=== PATIENT | female | born 1980 | race Caucasian/White ===

== ENCOUNTER → 2019-07-18 09:43 | Outpatient (CLI) | payer OTHER, SELFPAY ==
[2019-07-18 11:50] LABS: Influenza A - CEPHEID Flu A NEGATIVE (NEGATIVE); Influenza B - CEPHEID Flu B NEGATIVE (NEGATIVE)
== END ==
PROVIDERS: Visit Provider Physician Assistant
DX: R05 Cough (principal); R50.9 Fever, unspecified
CPT/HCPCS: 87502

== ENCOUNTER 2021-06-06 08:48 | Emergency (ER) | payer OTHER, SELFPAY ==
[2021-06-06] VITALS (17 sets, daily range): BP systolic 106–147; BP diastolic 55–74; PULSE 70–105; RESP 15–27; TEMP 36.6; O2SAT 96–100; BMI 33.4
--- NOTE | 2021-06-06 09:02 | DI.US.S_ITS ---
PROCEDURE: US ABDOMEN LIMITED INDICATIONS: RUQ PAIN TECHNIQUE: Real-time scanning was performed of the abdominal and retroperitoneal organs, with image documentation. COMPARISON: None. FINDINGS: Liver: Homogeneous echotexture. No evidence of focal mass lesion. No intra hepatic biliary ductal dilatation Gallbladder: Sonolucent without cholelithiasis. No gallbladder wall thickening. No pericholecystic fluid or Byrd's sign. Common Bile Duct: 5 mm. Pancreas: Associated with the pancreatic body and tail, there is a large solid nonvascular mass lesion measuring 8.9 x 9.8 x 9.1 cm. Heterogenous internal echoes noted. IMPRESSION: 1. Large solid mass lesion associated with the pancreas. Recommend follow-up contrast CT abdomen and pelvis Approved by: Kurt Hurtado M.D. on 06/06/2021 at 9:10
--- NOTE | 2021-06-06 09:02 | DI.RAD.S_ITS ---
PROCEDURE: XR CHEST 1V INDICATIONS: short of breath TECHNIQUE: One view of the chest was acquired. COMPARISON: None. FINDINGS: Surgical changes and devices: None. Lungs and pleura: Lungs are clear. No pleural effusions or pneumothorax. Mediastinum: Mediastinal contours appear normal. Heart size is normal. Bones and chest wall: No suspicious bony lesions. Overlying soft tissues appear unremarkable. IMPRESSION: No acute cardiopulmonary findings Approved by: Kurt Hurtado M.D. on 06/06/2021 at 8:49
--- NOTE | 2021-06-06 09:03 | ED_ITS ---
HPI - Abdominal Pain General Chief Complaint: Abdominal Pain Stated Complaint: upper abd pain Time Seen by Provider: 06/06/21 08:53 History of Present Illness HPI narrative: Patient is a 41-year-old female with history of lupus controlled on hydroxychloroquine presenting today with sudden onset of upper abdominal pain bilateral shoulder pain and neck pain along with some chest pain. She said she felt fine yesterday. She is trying to sleep in this morning but unable to do so. She has significant epigastric pain. She says some of her neck and shoulder pain feels like lupus although she has not had a lupus flare in a number of years. She denies any fever or chills. Related Data Home Medications Medication Instructions Recorded Confirmed duloxetine 60 mg capsule,delayed 60 mg PO DAILY 07/18/19 07/18/19 release fluoxetine 20 mg capsule 20 mg PO DAILY 07/18/19 07/18/19 hydroxychloroquine 200 mg tablet 200 mg PO DAILY 07/18/19 07/18/19 Previous Rx's Medication Instructions Recorded ondansetron 4 mg disintegrating 4 mg PO Q8H PRN #10 tab 06/06/21 tablet oxycodone-acetaminophen 5 mg-325 1 tab PO Q6H PRN #20 tab 06/06/21 mg tablet (Percocet) Allergies Allergy/AdvReac Type Severity Reaction Status Date / Time Penicillins AdvReac Verified 06/06/21 09:04 Review of Systems Review of Systems Narrative: GENERAL: Denies chills, fatigue, malaise, fever, sweats, travel HEENT: Denies sinus pain, ear pain, sore throat, difficulty swallowing, neck pain RESPIRATORY: Denies dyspnea, cough, wheezing, hemoptysis, sputum. CARDIOVASCULAR: See HPI GASTROINTESTINAL: See HPI : Denies dysuria, frequency, incontinence, hematuria, urinary retention, flank pain. MUSCULOSKELETAL: Denies weakness, joint pain, or bony pain SKIN: No rash, no erythema, no pruritus NEUROLOGIC: Denies weakness, dizziness, headache, numbness, change in speech, confusion PSYCHIATRIC: No concerning psychosocial issues. 12 point review of systems is negative except for those stated above and HPI Patient History Social History Smoking Status: Never smoker Smoking Status: Never smoker Exam Initial Vital Signs Initial Vital Signs: Vital Signs Pulse Rate 72 06/06/21 08:54 Pulse Oximetry 100 06/06/21 08:54 GENERAL: Alert 41-year-old feels uncomfortable HEENT: Head atraumatic,EOMI, pupils reactive, face symmetric, moist mucous membranes CARDIOVASCULAR: Regular rate and rhythm without murmurs, rubs or gallops. RESPIRATORY: Breath sounds equal bilaterally, no wheezes rales or rhonchi. ABDOMEN: Soft, tender in epigastric region mild tenderness in upper quadrant negative Byrd sign minimal lower abdominal pain EXTREMITIES: Normal range of motion, no clubbing or edema. Neurovascularly intact NEUROLOGICAL: Alert and oriented x4.Normal gait and speech. SKIN: Warm, dry, no laceration, no petechiae, no rashes or lesions. Course Orders Ordered: ED Orders 06/06/21 10:05 CT abdomen pelvis w con Stat 06/06/21 11:55 COVID19 -Nasal swab/Pre-Proc Stat Discontinued Medications Ketorolac Tromethamine (Ketorolac 30 Mg/Ml Vial) 30 mg IV NOW ONE Stop: 06/06/21 09:03 Last Admin: 06/06/21 09:13 Dose: 30 mg Documented by: FRANCESCO Morphine Sulfate (Morphine 2 Mg/Ml Inj) 2 mg IV NOW ONE Stop: 06/06/21 10:42 Last Admin: 06/06/21 10:47 Dose: 2 mg Documented by: XIANG Morphine Sulfate (Morphine 2 Mg/Ml Inj) 2 mg IV NOW ONE Stop: 06/06/21 12:33 Last Admin: 06/06/21 13:20 Dose: 2 mg Documented by: PATITO Ondansetron HCl (Ondansetron 4 Mg/2 Ml Inj) 4 mg IV NOW ONE Stop: 06/06/21 12:33 Last Admin: 06/06/21 13:20 Dose: 4 mg Documented by: PATITO Vital Signs Vital signs: Vital Signs - 8 hr 06/06/21 10:30 06/06/21 11:00 06/06/21 11:30 Pulse Rate 85 79 80 Respiratory Rate 20 18 22 Blood Pressure 125/68 Pulse Oximetry 98 97 06/06/21 11:56 06/06/21 12:00 06/06/21 12:30 Pulse Rate 84 75 71 Respiratory Rate 19 22 20 Blood Pressure 128/64 Pulse Oximetry 99 98 98 06/06/21 13:00 06/06/21 13:21 06/06/21 13:30 Pulse Rate 72 73 70 Respiratory Rate 27 H 21 15 Blood Pressure 109/56 L 106/55 L Pulse Oximetry 96 96 96 06/06/21 14:00 06/06/21 14:30 Pulse Rate 78 80 Respiratory Rate 20 21 Blood Pressure 114/69 114/60 Pulse Oximetry 99 98 MDM - Abdominal Pain Lab Data Result diagrams: 06/06/21 08:55 06/06/21 08:55 Labs: Lab Results 06/06/21 06/06/21 06/06/21 Range/Units 08:50 08:55 08:55 WBC 7.9 (4.5-11.0) X10^3/uL RBC 4.84 (4.0-5.2) X10^6/uL Hgb 12.6 (12.0-16.0) g/dL Hct 39.1 (36-46) % MCV 80.8 (80-100) fL MCH 26.0 (26-34) PG MCHC 32.1 (30-36) % RDW 15.2 H (11.6-14.8) % Plt Count 297 (150-400) X10^3/uL Neut % (Auto) 76.5 H (50-75) % Lymph % (Auto) 17.8 L (25-40) % [place] % (Auto) 3.7 (3-14) % Eos % (Auto) 1.2 L (2-4) % Baso % (Auto) 0.8 (0-2) % Neut # (Auto) 6000 (8690-8376) /uL Lymph # (Auto) 1400 (6732-0941) /uL [place] # (Auto) 300 (0-900) /uL Eos # (Auto) 100 (0-450) /uL Baso # (Auto) 100 (0-100) /uL PT 12.1 (10.1-12.7) SECONDS INR 1.1 (0.9-1.3) APTT 37 H (26.4-36.2) SECONDS Sodium 136 L (137-145) mmol/L Potassium 3.8 (3.4-5.1) mmol/L Chloride 106 (98-107) mmol/L Carbon Dioxide 25 (22-32) mmol/L BUN 16 (7-17) mg/dL Creatinine 0.72 (0.52-1.04) mg/dL Estimated GFR > 60.0 (>60) mL/min BUN/Creatinine Ratio 22.2 H (6-22) Glucose 100 (70-100) mg/dL Calcium 8.7 (8.4-10.2) mg/dL Total Bilirubin 0.6 (0.2-1.3) mg/dL AST 21 (14-36) IU/L ALT 17 (<35) IU/L Alkaline Phosphatase 65 (38-126) U/L Total Creatine Kinase (30-135) U/L CK-MB (CK-2) CK-MB (CK-2) Rel Index Troponin I (0.01-0.034) ng/mL Total Protein 6.9 (6.3-8.2) g/dL Albumin 4.0 (3.5-5.0) g/dL Globulin 2.9 (1.7-4.1) g/dL Albumin/Globulin Ratio 1.4 (1.0-2.8) Lipase 43 (23-300) U/L SARS-CoV-2 (PCR) (Negative) 06/06/21 06/06/21 Range/Units 08:55 11:55 WBC (4.5-11.0) X10^3/uL RBC (4.0-5.2) X10^6/uL Hgb (12.0-16.0) g/dL Hct (36-46) % MCV (80-100) fL MCH (26-34) PG MCHC (30-36) % RDW (11.6-14.8) % Plt Count (150-400) X10^3/uL Neut % (Auto) (50-75) % Lymph % (Auto) (25-40) % [place] % (Auto) (3-14) % Eos % (Auto) (2-4) % Baso % (Auto) (0-2) % Neut # (Auto) (9711-3379) /uL Lymph # (Auto) (7331-8568) /uL [place] # (Auto) (0-900) /uL Eos # (Auto) (0-450) /uL Baso # (Auto) (0-100) /uL PT (10.1-12.7) SECONDS INR (0.9-1.3) APTT (26.4-36.2) SECONDS Sodium (137-145) mmol/L Potassium (3.4-5.1) mmol/L Chloride (98-107) mmol/L Carbon Dioxide (22-32) mmol/L BUN (7-17) mg/dL Creatinine (0.52-1.04) mg/dL Estimated GFR (>60) mL/min BUN/Creatinine Ratio (6-22) Glucose (70-100) mg/dL Calcium (8.4-10.2) mg/dL Total Bilirubin (0.2-1.3) mg/dL AST (14-36) IU/L ALT (<35) IU/L Alkaline Phosphatase (38-126) U/L Total Creatine Kinase 96 (30-135) U/L CK-MB (CK-2) TNP CK-MB (CK-2) Rel Index TNP Troponin I < 0.012 (0.01-0.034) ng/mL Total Protein (6.3-8.2) g/dL Albumin (3.5-5.0) g/dL Globulin (1.7-4.1) g/dL Albumin/Globulin Ratio (1.0-2.8) Lipase (23-300) U/L SARS-CoV-2 (PCR) Negative (Negative) Point of care testing: Point of Care Testing Test Results Negative Urine Dip Bedside Urine Glucose Negative Bedside Urine Bilirubin - Negative Bedside Urine Ketone - Negative Urine Specific [place] 1.010 Bedside Urine Occult Blood +++ Bedside Urine pH 8 Bedside Urine Protein - Negative Bedside Urine Urobilinogen - Negative Bedside Urine Nitrite - Negative Bedside Urine Leukocytes - Negative Esterase Imaging Data US - abdomen: Radiologist's Impression: PROCEDURE:? US ABDOMEN LIMITED ? INDICATIONS:? RUQ PAIN ? TECHNIQUE:? Real-time scanning was performed of the abdominal and retroperitoneal organs, with image documentation.? ? COMPARISON:? None. ? FINDINGS: ? Liver:? Homogeneous echotexture.? No evidence of focal mass lesion.? No intra hepatic biliary ductal dilatation ? Gallbladder:? Sonolucent without cholelithiasis.? No gallbladder wall thickening. No pericholecystic fluid or Byrd's sign. ? Common Bile Duct:? 5 mm. ? Pancreas:? Associated with the pancreatic body and tail, there is a large solid nonvascular mass lesion measuring 8.9 x 9.8 x 9.1 cm.? Heterogenous internal echoes noted. ? IMPRESSION: ? 1. Large solid mass lesion associated with the pancreas.? Recommend follow-up contrast CT abdomen and pelvis? Approved by: Kurt Hurtado M.D. on 06/06/2021 at 9:10? CT scan - abdomen/pelvis: Radiologist's Impression: PROCEDURE:? CT ABDOMEN PELVIS W CON ? INDICATIONS:? Abdominal pain ? TECHNIQUE:? After the administration of intravenous contrast, axial sections acquired from the lung bases to the pubic symphysis.? Coronal and sagittal reformats were performed.? For radiation dose reduction, the following was used:? automated exposure control, adjustment of mA and/or kV according to patient size.? ? COMPARISON:? None. ? FINDINGS: ? Lower thorax: The lung bases are clear.? Heart size normal.? No hiatal hernia. ? Liver:? Normal in size and attenuation. No contour deformity present.? Perihepatic free fluid noted. ? Biliary system:? No calcified cholelithiasis or pericholecystic inflammation. No intra or extrahepatic bile duct dilatation. ? Pancreas:? There is a large mass lesion replacing the body and tail of the pancreas measuring 8.5 x 10.4 cm axial by 9.4 cm craniocaudal.? There are both solid and cystic internal components, there is a solid capsule measuring up to 4 mm in thickness.? Mass appears to compress the splenic vein without definitive evidence of local invasion. ? Spleen:? Spleen is enlarged at 13 cm.? No intrinsic mass lesion in.? Perisplenic free fluid noted.? Multiple venous varices noted in the splenic hilum ? Adrenals:? Normal morphology and density. ? Reproductive system:? Unremarkable as visualized.? Vaginal tampon noted ? Urinary system:? Normal renal size and attenuation. No renal calculi, hydronephrosis, or solid mass present.? Urinary bladder unremarkable. ? Gastrointestinal system:? The bowel is unremarkable without evidence of bowel obstruction or inflammation. The stomach appears unremarkable. ? Appendix:? No findings to suggest acute appendicitis. ? Peritoneal spaces:? No mesenteric or retroperitoneal adenopathy.? No free air.? Moderate free fluid noted in the upper quadrants as well as in the pelvis.? ? Vasculature:? Multiple varices noted in the splenic hilum as well as within the mesentery.? Aorta and IVC unremarkable. ? Abdominal wall:? Abdominal wall intact without evidence of ventral or inguinal hernias. ? Musculoskeletal:? Normal bone mineralization.? No acute fractures.? ? IMPRESSION: ? 1. Large solid and cystic mass lesion replaces the body and tail the pancreas.? Given the appearance, primary differential is neoplastic.? Less likely consideration would be pseudocyst.? The mass compresses the splenic vein, and there are multiple perisplenic and mesenteric varices present.? ? 2. Moderate abdominal and pelvic ascites.? ? 3. Splenomegaly, 13 cm without focal mass lesion ? ? Approved by: Kurt Hurtado M.D. on 06/06/2021 at 10:35? Chest x-ray: Radiologist's Impression: PROCEDURE:? XR CHEST 1V ? INDICATIONS:? short of breath ? TECHNIQUE:? One view of the chest was acquired.? ? COMPARISON:? None. ? FINDINGS:? ? Surgical changes and devices:? None.? ? Lungs and pleura:? Lungs are clear.? No pleural effusions or pneumothorax.? ? Mediastinum:? Mediastinal contours appear normal.? Heart size is normal.? ? Bones and chest wall:? No suspicious bony lesions.? Overlying soft tissues appear unremarkable.? ? IMPRESSION:? No acute cardiopulmonary findings ? ? ? Approved by: Kurt Hurtado M.D. on 06/06/2021 at 8:49? ECG Data Interpretation: Normal sinus rhythm rate 71 RI interval 152 QRS [address] changes or T- wave inversions MDM Narrative Medical decision making narrative: Initially patient's pain is controlled with Toradol. Unfortunately a pancreatic masses seen on ultrasound and confirmed by CP. Blood work is overall is reassuring. 1310 Dr Ann, surgery at [facility] has reviewed CT and updated patient's symptoms. At this time recommends outpatient follow-up specifically with [facility]. Recommends referral P placed. 1430-Dr Reed, on-call for [facility], patient's PCP has been updated on patient's results in need for urgent referral. She will place the referral. Patient did require morphine to help with pain. she will be sent home with pain and nausea medication. Patient and her have been updated on results concern for cancer and needed to go to [place]. Discharge Plan Departure Patient Disposition: Home Clinical Impression: Mass of pancreas Instructions: Pancreatic Cancer Activity Restrictions/Additional Instructions: *You have been diagnosed with pancreatic mass *What to do: At this time and appears to have a mass on her pancreas. It is concerning for cancer. I am working on a referral for you to the [facility]. I spoke with a surgeon Indigo Ann. I am also making your primary care provider aware of the situation as well *Continue to take medications as directed Percocet 1 tablet every 6 hours if needed for severe pain Zofran 4 mg every 8 hours if needed for nausea or vomiting *Follow up with your primary care provider in 2-3 days or call [phone] [facility] *Return to ER if you should have persistent vomiting, increasing pain, or any new, worsening or concerning symptoms CONTROLLED SUBSTANCE DISCHARGE (Narcotoic/benzodiazepine/Flexeril/Phenergan) 1. You have been prescribed narcotic medications, it does have acetaminophen/Tylenol/paracetamol in it, DO NOT TAKE MORE THAN 4,00mg in 24 hours of Tylenol. TRAMADOL DOES NOT CONTAIN TYLENOL 2. Please understand that we cannot provide further refills of narcotics, benzodiazepines or controlled substances through the ED and her pain management will need to be through your provider. 3. While on these medications you cannot drive or operate heavy machinery. 4. You cannot sign legal documents or perform any duties such as this. 5. As long as you're taking opiate pain medications he should also be taking a stool softener such as Colace, Dulcolax, MiraLAX or prune juice, to help avoid constipation. Prescriptions: New oxycodone-acetaminophen [Percocet] 5-325 mg tablet 1 tab PO Q6H PRN (Reason: pain) Qty: 20 0RF ondansetron 4 mg tablet,disintegrating 4 mg PO Q8H PRN (Reason: nausea and vomiting) Qty: 10 0RF No Action hydroxychloroquine 200 mg tablet 200 mg PO DAILY 0RF fluoxetine 20 mg capsule 20 mg PO DAILY 0RF duloxetine 60 mg capsule,delayed release(DR/EC) 60 mg PO DAILY 0RF
[2021-06-06 09:13] LABS: Add Manual Diff / Slide Review NO; Basophils Absolute Auto 100 /uL (0-100); Basophils Percent Auto 0.8 % (0-2); Eosinophils Absolute Auto 100 /uL (0-450); Eosinophils Percent Auto 1.2 % (2-4); Hematocrit 39.1 % (36-46); Hemoglobin 12.6 g/dL (12.0-16.0); Lymphocytes Absolute Auto 1400 /uL (1100-4500); Lymphocytes Percent Auto 17.8 % (25-40); Mean Corpuscular HGB Conc 32.1 % (30-36); Mean Corpuscular Volume 80.8 fL (80-100); Monocytes Absolute Auto 300 /uL (0-900); Monocytes Percent Auto 3.7 % (3-14); Neutrophils Absolute Auto 6000 /uL (1500-7000); Neutrophils Percent Auto 76.5 % (50-75); Platelet Count 297 X10^3/uL (150-400); Red Blood Cell Count 4.84 X10^6/uL (4.0-5.2); Red Cell Distribution Width 15.2 % (11.6-14.8); White Blood Cell Count 7.9 X10^3/uL (4.5-11.0)
[2021-06-06] MEDS: KETOROLAC 30 MG/ML VIAL IV (09:13)
[2021-06-06 09:37] LABS: Alanine Aminotransferase 17 IU/L (<35); Albumin Globulin Ratio 1.4 (1.0-2.8); Alkaline Phosphatase 65 U/L (38-126); Aspartate Aminotransferase 21 IU/L (14-36); BUN Creatinine Ratio 22.2 (6-22); Bilirubin Total 0.6 mg/dL (0.2-1.3); Blood Urea Nitrogen 16 mg/dL (7-17); Calcium 8.7 mg/dL (8.4-10.2); Carbon Dioxide 25 mmol/L (22-32); Chloride 106 mmol/L (98-107); Creatine Kinase 96 U/L (30-135); Estimated Glomerular Filt Rate > 60.0 mL/min (>60); Globulin 2.9 g/dL (1.7-4.1); Glucose 100 mg/dL (70-100); HEMOLYSIS < 15 (0-50); Lipase 43 U/L (23-300); Potassium 3.8 mmol/L (3.4-5.1); Sodium 136 mmol/L (137-145); Total Protein 6.9 g/dL (6.3-8.2)
[2021-06-06 09:48] LABS: Troponin I < 0.012 ng/mL (0.01-0.034)
--- NOTE | 2021-06-06 10:05 | DI.CT.S_ITS ---
PROCEDURE: CT ABDOMEN PELVIS W CON INDICATIONS: Abdominal pain TECHNIQUE: After the administration of intravenous contrast, axial sections acquired from the lung bases to the pubic symphysis. Coronal and sagittal reformats were performed. For radiation dose reduction, the following was used: automated exposure control, adjustment of mA and/or kV according to patient size. COMPARISON: None. FINDINGS: Lower thorax: The lung bases are clear. Heart size normal. No hiatal hernia. Liver: Normal in size and attenuation. No contour deformity present. Perihepatic free fluid noted. Biliary system: No calcified cholelithiasis or pericholecystic inflammation. No intra or extrahepatic bile duct dilatation. Pancreas: There is a large mass lesion replacing the body and tail of the pancreas measuring 8.5 x 10.4 cm axial by 9.4 cm craniocaudal. There are both solid and cystic internal components, there is a solid capsule measuring up to 4 mm in thickness. Mass appears to compress the splenic vein without definitive evidence of local invasion. Spleen: Spleen is enlarged at 13 cm. No intrinsic mass lesion in. Perisplenic free fluid noted. Multiple venous varices noted in the splenic hilum Adrenals: Normal morphology and density. Reproductive system: Unremarkable as visualized. Vaginal tampon noted Urinary system: Normal renal size and attenuation. No renal calculi, hydronephrosis, or solid mass present. Urinary bladder unremarkable. Gastrointestinal system: The bowel is unremarkable without evidence of bowel obstruction or inflammation. The stomach appears unremarkable. Appendix: No findings to suggest acute appendicitis. Peritoneal spaces: No mesenteric or retroperitoneal adenopathy. No free air. Moderate free fluid noted in the upper quadrants as well as in the pelvis. Vasculature: Multiple varices noted in the splenic hilum as well as within the mesentery. Aorta and IVC unremarkable. Abdominal wall: Abdominal wall intact without evidence of ventral or inguinal hernias. Musculoskeletal: Normal bone mineralization. No acute fractures. IMPRESSION: 1. Large solid and cystic mass lesion replaces the body and tail the pancreas. Given the appearance, primary differential is neoplastic. Less likely consideration would be pseudocyst. The mass compresses the splenic vein, and there are multiple perisplenic and mesenteric varices present. 2. Moderate abdominal and pelvic ascites. 3. Splenomegaly, 13 cm without focal mass lesion Approved by: Kurt Hurtado M.D. on 06/06/2021 at 10:35
[2021-06-06] MEDS: MORPHINE 2 MG/ML INJ IV ×2 (10:47→13:20)
[2021-06-06 12:28] LABS: COVID19 -Nasal RAPID Negative (Negative)
[2021-06-06 12:47] LABS: INR 1.1 (0.9-1.3); Prothrombin Time 12.1 SECONDS (10.1-12.7)
[2021-06-06 12:50] LABS: PTT Partial Thromboplastin Tim 37 SECONDS (26.4-36.2)
[2021-06-06] MEDS: ONDANSETRON 4 MG/2 ML INJ IV (13:20)
== END 2021-06-06 15:06 | disposition home or self-care (01) ==
PROVIDERS: Emergency Provider Emergency Medicine
DX: K86.9 Disease of pancreas, unspecified (principal); Z88.0 Allergy status to penicillin; Z20.822 Contact with and (suspected) exposure to COVID-19
CPT/HCPCS: 36415; 71045; 74177; 76705; 80053; 81003; 81025; 82550; 83690; 84484; 85025; 85610; 85730; 87635; 93005; 93010; 96374; 96375; 96376; 99284; 99285; C9803; J1885; J2270; J2405; Q9967

== ENCOUNTER 2022-08-11 16:37 | Emergency (ER) | payer OTHER, SELFPAY ==
[2022-08-11 16:45] VITALS: BP 146/67; PULSE 78; RESP 24; TEMP 37.1; O2SAT 100; BMI 30.4
[2022-08-11 17:13] LABS: Add Manual Diff / Slide Review NO; Basophils Absolute Auto 100 /uL (0-100); Basophils Percent Auto 0.5 % (0-2); Eosinophils Absolute Auto 200 /uL (0-450); Hematocrit 38.1 % (36-46); Hemoglobin 12.4 g/dL (12.0-16.0); Lymphocytes Absolute Auto 2800 /uL (1100-4500); Lymphocytes Percent Auto 14.9 % (25-40); Mean Corpuscular HGB Conc 32.7 % (30-36); Mean Corpuscular Hemoglobin 26.8 PG (26-34); Monocytes Absolute Auto 1600 /uL (0-900); Monocytes Percent Auto 8.3 % (3-14); Neutrophils Absolute Auto 14400 /uL (1500-7000); Neutrophils Percent Auto 75.3 % (50-75); Platelet Count 732 X10^3/uL (150-400); Red Blood Cell Count 4.64 X10^6/uL (4.0-5.2); Red Cell Distribution Width 17.6 % (11.6-14.8); White Blood Cell Count 19.1 X10^3/uL (4.5-11.0)
[2022-08-11] MEDS: ONDANSETRON 4 MG/2 ML INJ IV (17:16)
[2022-08-11 17:26] LABS: Alanine Aminotransferase 52 IU/L (<35); Albumin 4.3 g/dL (3.5-5.0); Albumin Globulin Ratio 1.1 (1.0-2.8); Alkaline Phosphatase 87 U/L (38-126); Aspartate Aminotransferase 90 IU/L (14-36); BUN Creatinine Ratio 11.8 (6-22); Bilirubin Total 1.3 mg/dL (0.2-1.3); Blood Urea Nitrogen 8 mg/dL (7-17); Carbon Dioxide 26 mmol/L (22-32); Chloride 102 mmol/L (98-107); Estimated Glomerular Filt Rate > 60 mL/min (>60); Globulin 3.8 g/dL (1.7-4.1); Glucose 110 mg/dL (70-100); HEMOLYSIS < 15 (0-50); Lipase 57 U/L (23-300); Potassium 3.5 mmol/L (3.4-5.1); Sodium 138 mmol/L (137-145); Total Protein 8.1 g/dL (6.3-8.2)
[2022-08-11 17:43] LABS: HCG Quantitative /Beta subunit 137.2 mIU/mL
--- NOTE | 2022-08-11 18:32 | ED.ABDPAIN ---
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 She thought she was having a pancreatic attack. No fever or chills. She is having back pain as well. She has no lower abdominal pain. She is having normal bowel movements. Her last menstrual period was 3-4 weeks ago. Related Data Home Medications Medication Instructions Recorded Confirmed duloxetine 60 mg capsule,delayed 60 mg PO DAILY 07/18/19 07/18/19 release fluoxetine 20 mg capsule 20 mg PO DAILY 07/18/19 07/18/19 hydroxychloroquine 200 mg tablet 200 mg PO DAILY 07/18/19 07/18/19 Previous Rx's Medication Instructions Recorded ondansetron 4 mg disintegrating 4 mg PO Q8H PRN nausea and 06/06/21 tablet vomiting #10 tabs oxycodone-acetaminophen 5 mg-325 1 tab PO Q6H PRN pain #20 tabs 06/06/21 mg tablet (Percocet) ondansetron 4 mg disintegrating 4 mg PO Q8H PRN nausea and 08/11/22 tablet vomiting #10 tabs Allergies Allergy/AdvReac Type Severity Reaction Status Date / Time Penicillins AdvReac Verified 06/06/21 09:04 Review of Systems Review of Systems ROS Unobtainable: All systems reviewed & are unremarkable except as noted in HPI and below Patient History Social History Smoking Status: Never smoker Smoking Status: Never smoker Substance Use Type: does not use Exam Initial Vital Signs Initial Vital Signs: Vital Signs Temperature 98.8 F 08/11/22 16:45 Pulse Rate 78 08/11/22 16:45 Respiratory Rate 24 08/11/22 16:45 Blood Pressure 146/67 H 08/11/22 16:45 Pulse Oximetry 100 08/11/22 16:45 Oxygen Delivery Method Room Air 08/11/22 16:45 GENERAL: Alert pleasant 42-year-old female and in no acute distress. HEENT: Head atraumatic,EOMI, pupils reactive, face symmetric, moist mucous membranes CARDIOVASCULAR: Regular rate and rhythm without murmurs, rubs or gallops. RESPIRATORY: Breath sounds equal bilaterally, no wheezes rales or rhonchi. ABDOMEN: Soft, nontender. Normoactive bowel sounds all 4 quadrants. No guarding or rebound. No distention. Small scar is noted nontender : No CVA tenderness EXTREMITIES: Normal range of motion, no clubbing or edema. Neurovascularly intact NEUROLOGICAL: Alert and oriented x4.Normal gait and speech. SKIN: Warm, dry, no laceration, no petechiae, no rashes or lesions. Course Orders Ordered: Discontinued Medications Sodium Chloride (Normal Saline 0.9%) 1,000 mls @ 1,000 mls/hr IV BOLUS ONE Stop: 08/11/22 19:38 Last Infusion: 08/11/22 20:08 Dose: 0 mls/hr Documented By: Admin: 08/11/22 19:00 Dose: 1,000 mls/hr Documented By: DAMIR Ondansetron HCl (Ondansetron 4 Mg Odt) 4 mg PO NOW PRN PRN Reason: Nausea And Vomiting Ondansetron HCl (Ondansetron 4 Mg/2 Ml Inj) 4 mg IV NOW PRN PRN Reason: Nausea And Vomiting Last Admin: 08/11/22 17:16 Dose: 4 mg Documented By: LIGIA Vital Signs Vital signs: Vital Signs - 8 hr 08/11/22 16:45 Temperature 98.8 F Pulse Rate 78 Respiratory Rate 24 Blood Pressure 146/67 H Pulse Oximetry 100 Oxygen Delivery Method Room Air MDM - Abdominal Pain Lab Data 08/11/22 17:03 08/11/22 17:03 Labs: Lab Results 08/11/22 08/11/22 08/11/22 Range/Units 17:03 17:03 17:03 WBC 19.1 H (4.5-11.0) X10^3/uL RBC 4.64 (4.0-5.2) X10^6/uL Hgb 12.4 (12.0-16.0) g/dL Hct 38.1 (36-46) % MCV 82.0 (80-100) fL MCH 26.8 (26-34) PG MCHC 32.7 (30-36) % RDW 17.6 H (11.6-14.8) % Plt Count 732 H (150-400) X10^3/uL Neut % (Auto) 75.3 H (50-75) % Lymph % (Auto) 14.9 L (25-40) % [place] % (Auto) 8.3 (3-14) % Eos % (Auto) 1.0 L (2-4) % Baso % (Auto) 0.5 (0-2) % Neut # (Auto) 21034 H (2298-9193) /uL Lymph # (Auto) 2800 (3708-6089) /uL [place] # (Auto) 1600 H (0-900) /uL Eos # (Auto) 200 (0-450) /uL Baso # (Auto) 100 (0-100) /uL Sodium 138 (137-145) mmol/L Potassium 3.5 (3.4-5.1) mmol/L Chloride 102 (98-107) mmol/L Carbon Dioxide 26 (22-32) mmol/L BUN 8 (7-17) mg/dL Creatinine 0.68 (0.52-1.04) mg/dL Estimated GFR > 60 (>60) mL/min BUN/Creatinine Ratio 11.8 (6-22) Glucose 110 H (70-100) mg/dL Lactate (0.7-2.1) mmol/L Calcium 9.0 (8.4-10.2) mg/dL Total Bilirubin 1.3 (0.2-1.3) mg/dL AST 90 H (14-36) IU/L ALT 52 H (<35) IU/L Alkaline Phosphatase 87 (38-126) U/L Total Protein 8.1 (6.3-8.2) g/dL Albumin 4.3 (3.5-5.0) g/dL Globulin 3.8 (1.7-4.1) g/dL Albumin/Globulin Ratio 1.1 (1.0-2.8) Lipase 57 (23-300) U/L Procalcitonin (<0.5) ng/mL HCG, Quant 137.2 mIU/mL 08/11/22 08/11/22 Range/Units 17:03 17:03 WBC (4.5-11.0) X10^3/uL RBC (4.0-5.2) X10^6/uL Hgb (12.0-16.0) g/dL Hct (36-46) % MCV (80-100) fL MCH (26-34) PG MCHC (30-36) % RDW (11.6-14.8) % Plt Count (150-400) X10^3/uL Neut % (Auto) (50-75) % Lymph % (Auto) (25-40) % [place] % (Auto) (3-14) % Eos % (Auto) (2-4) % Baso % (Auto) (0-2) % Neut # (Auto) (0431-0485) /uL Lymph # (Auto) (6327-4598) /uL [place] # (Auto) (0-900) /uL Eos # (Auto) (0-450) /uL Baso # (Auto) (0-100) /uL Sodium (137-145) mmol/L Potassium (3.4-5.1) mmol/L Chloride (98-107) mmol/L Carbon Dioxide (22-32) mmol/L BUN (7-17) mg/dL Creatinine (0.52-1.04) mg/dL Estimated GFR (>60) mL/min BUN/Creatinine Ratio (6-22) Glucose (70-100) mg/dL Lactate 1.5 (0.7-2.1) mmol/L Calcium (8.4-10.2) mg/dL Total Bilirubin (0.2-1.3) mg/dL AST (14-36) IU/L ALT (<35) IU/L Alkaline Phosphatase (38-126) U/L Total Protein (6.3-8.2) g/dL Albumin (3.5-5.0) g/dL Globulin (1.7-4.1) g/dL Albumin/Globulin Ratio (1.0-2.8) Lipase (23-300) U/L Procalcitonin 0.03 (<0.5) ng/mL HCG, Quant mIU/mL Point of care testing: Point of Care Testing Test Results Positive Urine Dip Bedside Urine Glucose Negative Bedside Urine Bilirubin - Negative Bedside Urine Ketone - Negative Urine Specific Rickman 1.015 Bedside Urine Occult Blood - Negative Bedside Urine pH 6 Bedside Urine Protein - Negative Bedside Urine Urobilinogen - Negative Bedside Urine Nitrite - Negative Bedside Urine Leukocytes - Negative Esterase Imaging Data US - OB: Radiologist's Impression: PROCEDURE:? US OB <= 14 WEEKS FETUS ? INDICATIONS:? new ? OUTSIDE/PRIOR DATING DATA:? Last menstrual period (LMP):? 07/13/2022.? LMP-based estimated date of delivery (AGATA):? 04/19/2023. ? TECHNIQUE:? Real-time scanning was performed of the fetus, with image documentation and biometric measurements.? ? COMPARISON:? None. ? FINDINGS:? ? General:? No intrauterine gestational sac.? No pole.? ? Retroverted uterus.? Small intramural uterine fibroid measuring 1.4 cm.? Endometrium measures 1.2 cm.? Cervix is unremarkable. ? Right ovary measures 3.8 x 2.1 x 1.8 cm. Left ovary measures 4.9 x 2.1 x 1.9 cm. No ovarian mass or cyst.? No ectopic demonstrated.? ? IMPRESSION:? of uncertain location. ? No intrauterine gestational sac.? No ectopic is identified. ? Recommend trending beta hCG and if indicated short-term follow-up pelvic ultrasound. ? We strive to produce accurate, complete, and clear reports of imaging services. To assist us in improving patient care, this report was composed using standard report templates and voice recognition software. Therefore, it may contain abnormal punctuation, insertions and/or omissions. Occasional wrong-word or sound-alike substitutions may occur. Though we review the report and make efforts to correct it, we do recommend that the report be read carefully in proper context to recognize any text inaccuracies. ? Dictated by: Benedicto Bradford M.D. on 08/11/2022 at 19:51 ?? [facility] Narrative Medical decision making narrative: Patient 42-year-old female presenting today with left upper quadrant pain nausea vomiting history of pancreatic mass. Blood work shows leukocytosis of 19 with a left shift and elevated platelets. Electrolytes are within normal limits no evidence of LAN. Mild elevation AST ALT 90 and 52. She is not having any right upper quadrant pain negative Byrd's sign no epigastric pain. Abdomen is reexamined did really is very soft. Zofran has helped her. Urinalysis does not show any evidence of infection. test is positive by urine and hCG is 137. She reports that she is a with 8-year-old twins. This is unexpected news. Ultrasound can not confirm an IUP. This is likely secondary to very early . Recommend follow-up. She is not having any severe lower quadrant pain. Starting to have some gassiness and left upper quadrant pain however abdomen remained soft not tender. We discussed imaging. However she want imaging now I agree with this. She is normal lactate normal procalcitonin. Leukocytosis is likely secondary to stress reaction from vomiting. Discharge Plan Departure Patient Disposition: Home Clinical Impression: , Abdominal pain Instructions: DI for Abdominal Pain-Adult, DI for -- Discomforts and Remedies Activity Restrictions/Additional Instructions: HCG 137 *You have been diagnosed with abdominal pain, *What to do: At this time increase fluid intake. If your pain continues you may require imaging. Please have HCG repeated in 48 hours. PCP or OBGYN can do this for you. *Continue to take medications as directed Please talk to your doctor about your current medications and . Tylenol 1000 mg every 6 hours needed for [id number] Zofran 4 mg every 8 hours if needed for nausea or vomiting vitamins daily *Follow up with your primary care provider in 2-3 days or call [phone] *Return to ER if you should have increased abdominal pain vaginal bleeding, persistent vomiting or any new, worsening or concerning symptoms Prescriptions: New ondansetron 4 mg tablet,disintegrating 4 mg PO Q8H PRN (Reason: nausea and vomiting) Qty: 10 0RF No Action hydroxychloroquine 200 mg tablet 200 mg PO DAILY fluoxetine 20 mg capsule 20 mg PO DAILY duloxetine 60 mg capsule,delayed release(DR/EC) 60 mg PO DAILY oxycodone-acetaminophen [Percocet] 5-325 mg tablet 1 tab PO Q6H PRN (Reason: pain) Qty: 20 0RF ondansetron 4 mg tablet,disintegrating 4 mg PO Q8H PRN (Reason: nausea and vomiting) Qty: 10 0RF Referrals: Roverto Jarvis MD [Primary Care Provider] - Stand Alone Forms: Patient Portal/API
--- NOTE | 2022-08-11 18:39 | DI.US.S_ITS ---
PROCEDURE: US OB <= 14 WEEKS FETUS INDICATIONS: new OUTSIDE/PRIOR DATING DATA: Last menstrual period (LMP): 07/13/2022. LMP-based estimated date of delivery (AGATA): 04/19/2023. TECHNIQUE: Real-time scanning was performed of the fetus, with image documentation and biometric measurements. COMPARISON: None. FINDINGS: General: No intrauterine gestational sac. No pole. Retroverted uterus. Small intramural uterine fibroid measuring 1.4 cm. Endometrium measures 1.2 cm. Cervix is unremarkable. Right ovary measures 3.8 x 2.1 x 1.8 cm. Left ovary measures 4.9 x 2.1 x 1.9 cm. No ovarian mass or cyst. No ectopic demonstrated. IMPRESSION: of uncertain location. No intrauterine gestational sac. No ectopic is identified. Recommend trending beta hCG and if indicated short-term follow-up pelvic ultrasound. We strive to produce accurate, complete, and clear reports of imaging services. To assist us in improving patient care, this report was composed using standard report templates and voice recognition software. Therefore, it may contain abnormal punctuation, insertions and/or omissions. Occasional wrong-word or sound-alike substitutions may occur. Though we review the report and make efforts to correct it, we do recommend that the report be read carefully in proper context to recognize any text inaccuracies. Dictated by: Benedicto Bradford M.D. on 08/11/2022 at 19:51 Approved by: Benedicto Bradford M.D. on 08/11/2022 at 19:55
[2022-08-11] MEDS: SODIUM CHLORIDE 0.9% 1,000 ML 1000 ML IV (19:00)
[2022-08-11 19:04] LABS: Lactate (Lactic Acid) 1.5 mmol/L (0.7-2.1)
[2022-08-11 19:21] LABS: Procalcitonin 0.03 ng/mL (<0.5)
[2022-08-11 20:22] VITALS: BP 127/78; PULSE 78; RESP 16; O2SAT 99
== END 2022-08-11 20:29 | disposition home or self-care (01) ==
PROVIDERS: Emergency Medicine; Emergency Provider Emergency Medicine; PCP Family Medicine Sports Medicine
DX: R10.12 Left upper quadrant pain (principal); R11.2 Nausea with vomiting, unspecified; Z33.1 Pregnant state, incidental
CPT/HCPCS: 36415; 76801; 76830; 80053; 81003; 81025; 83605; 83690; 84145; 84702; 85025; 96361; 96374; 99284; J2405

== ENCOUNTER 2022-09-04 15:51 | Emergency (ER) | payer OTHER, SELFPAY ==
[2022-09-04] VITALS (9 sets, daily range): BP systolic 122–130; BP diastolic 58–71; PULSE 74–88; RESP 20; TEMP 36.6; O2SAT 92–100; BMI 30.4
--- NOTE | 2022-09-04 16:39 | ED.PREGNANCY ---
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 Patient was found to be and her ER visit on 08/11/2022, she states by dates she should been 4 weeks at that point and should be about 8 weeks at this time. She started having lower pelvic cramping and vaginal bleeding in the last day. She took Tylenol 2:00 p.m. which she states was minimally helpful. She is had some small clots and states blood has been dark. Patient denies any fevers. No chest pain or shortness of breath, no lightheadedness or passing out. No nausea or vomiting. No diarrhea or constipation. No black or bloody stools. No dysuria, urgency or frequency. She was not have any vaginal bleeding before. She states it seems a little mucousy. Patient states she is currently on Prozac can hydroxychloroquine is her daily medications. Patient states she had surgery for pancreatic mass with a splenectomy and partial removal of her pancreas. She denies any other surgeries. She states allergic to penicillin. No tobacco, alcohol or illicit. She is established for care with [facility] she was scheduled to have repeat ultrasound this coming . Patient's chart notes that her hCG was 137 on 08/11/2022, ultrasound showed no intrauterine gestational sac, no clear ectopic with a small intramural uterine fibroid measuring 1.4 cm. Related Data Home Medications Medication Instructions Recorded Confirmed duloxetine 60 mg capsule,delayed 60 mg PO DAILY 07/18/19 07/18/19 release fluoxetine 20 mg capsule 20 mg PO DAILY 07/18/19 07/18/19 hydroxychloroquine 200 mg tablet 200 mg PO DAILY 07/18/19 07/18/19 Previous Rx's Medication Instructions Recorded ondansetron 4 mg disintegrating 4 mg PO Q8H PRN nausea and 06/06/21 tablet vomiting #10 tabs oxycodone-acetaminophen 5 mg-325 1 tab PO Q6H PRN pain #20 tabs 06/06/21 mg tablet (Percocet) ondansetron 4 mg disintegrating 4 mg PO Q8H PRN nausea and 08/11/22 tablet vomiting #10 tabs Allergies Allergy/AdvReac Type Severity Reaction Status Date / Time Penicillins AdvReac Verified 09/04/22 16:11 Review of Systems <Li Ha DO - Last Filed: 09/10/22 19:47> Review of Systems ROS Unobtainable: All systems reviewed & are unremarkable except as noted in HPI and below Exam <Li Ha DO - Last Filed: 09/10/22 19:47> Narrative Exam Narrative: GENERAL: Alert and oriented x three, well-nourished female in mild distress. HEENT: Head normocephalic, atraumatic, EOMI, pupils reactive, face symmetric, moist mucous membranes NECK: Supple, full range of motion CARDIOVASCULAR: Regular rate and rhythm without murmurs, rubs or gallops. RESPIRATORY: Breath sounds equal bilaterally, no wheezes rales or rhonchi. ABDOMEN: Soft, nontender. Normoactive bowel sounds all 4 quadrants. No guarding or rebound, rigidity, no mass : No CVA tenderness EXTREMITIES: Normal range of motion, no clubbing or edema. Neurovascularly intact NEUROLOGICAL: Cranial nerves II through XII grossly intact. Moving all extremities SKIN: Warm, dry, no petechiae, no rashes or lesions. Initial Vital Signs Initial Vital Signs: Vital Signs Temperature 97.8 F 09/04/22 16:06 Pulse Rate 88 09/04/22 16:06 Respiratory Rate 20 09/04/22 16:06 Blood Pressure 129/62 09/04/22 16:06 Pulse Oximetry 99 09/04/22 16:06 Oxygen Delivery Method Room Air 09/04/22 16:06 <Gracy Barakat DO - Last Filed: 09/05/22 03:30> Initial Vital Signs Initial Vital Signs: Vital Signs Temperature 97.8 F 09/04/22 16:06 Pulse Rate 88 09/04/22 16:06 Respiratory Rate 20 09/04/22 16:06 Blood Pressure 129/62 09/04/22 16:06 Pulse Oximetry 99 09/04/22 16:06 Oxygen Delivery Method Room Air 09/04/22 16:06 Course <DO Cira Araujo Last Filed: 09/10/22 19:47> Orders Ordered: ED Orders 09/04/22 16:10 ABO RH Type Stat Beta HCG, Quant [HCG Quantitative /Beta subunit] Stat CBC Auto Diff [Complete Blood Count AUTO DIFF] Stat CMP [Comprehensive Metabolic Panel] Stat Lipase Stat 09/04/22 16:43 US OB <= 14 weeks fetus Stat Vital Signs Vital signs: Vital Signs - 8 hr 09/04/22 16:06 09/04/22 16:13 09/04/22 16:17 Temperature 97.8 F Pulse Rate 88 83 80 Respiratory Rate 20 Blood Pressure 129/62 Pulse Oximetry 99 100 99 Oxygen Delivery Method Room Air 09/04/22 16:17 09/04/22 16:30 09/04/22 16:30 Temperature Pulse Rate 84 Respiratory Rate Blood Pressure 124/68 127/69 Pulse Oximetry 99 Oxygen Delivery Method 09/04/22 17:00 09/04/22 17:00 09/04/22 18:00 Temperature Pulse Rate 74 78 Respiratory Rate Blood Pressure 130/71 Pulse Oximetry 100 94 Oxygen Delivery Method <DO Cira Epstein Last Filed: 09/05/22 03:30> Orders Ordered: ED Orders 09/04/22 16:10 ABO RH Type Stat Beta HCG, Quant [HCG Quantitative /Beta subunit] Stat CBC Auto Diff [Complete Blood Count AUTO DIFF] Stat CMP [Comprehensive Metabolic Panel] Stat Lipase Stat 09/04/22 16:43 US OB <= 14 weeks fetus Stat Vital Signs Vital signs: Vital Signs - 8 hr 09/04/22 16:06 09/04/22 16:13 09/04/22 16:17 Temperature 97.8 F Pulse Rate 88 83 80 Respiratory Rate 20 Blood Pressure 129/62 Pulse Oximetry 99 100 99 Oxygen Delivery Method Room Air 09/04/22 16:17 09/04/22 16:30 09/04/22 16:30 Temperature Pulse Rate 84 Respiratory Rate Blood Pressure 124/68 127/69 Pulse Oximetry 99 Oxygen Delivery Method 09/04/22 17:00 09/04/22 17:00 09/04/22 18:00 Temperature Pulse Rate 74 78 Respiratory Rate Blood Pressure 130/71 Pulse Oximetry 100 94 Oxygen Delivery Method MDM - OB/Uterine Contractions <Li C Mank, DO - Last Filed: 09/10/22 19:47> Lab Data 09/04/22 16:10 09/04/22 16:10 Labs: Lab Results 09/04/22 09/04/22 09/04/22 Range/Units 16:10 16:10 16:10 WBC 19.2 H (4.5-11.0) X10^3/uL RBC 4.44 (4.0-5.2) X10^6/uL Hgb 11.9 L (12.0-16.0) g/dL Hct 36.6 (36-46) % MCV 82.4 (80-100) fL MCH 26.7 (26-34) PG MCHC 32.4 (30-36) % RDW 16.5 H (11.6-14.8) % Plt Count 665 H (150-400) X10^3/uL Neut % (Auto) 67.6 (50-75) % Lymph % (Auto) 21.3 L (25-40) % [place] % (Auto) 8.3 (3-14) % Eos % (Auto) 2.1 (2-4) % Baso % (Auto) 0.7 (0-2) % Neut # (Auto) 42360 H (6457-9995) /uL Lymph # (Auto) 4100 (4854-4214) /uL [place] # (Auto) 1600 H (0-900) /uL Eos # (Auto) 400 (0-450) /uL Baso # (Auto) 100 (0-100) /uL Sodium 137 (137-145) mmol/L Potassium 3.8 (3.4-5.1) mmol/L Chloride 101 (98-107) mmol/L Carbon Dioxide 29 (22-32) mmol/L BUN 9 (7-17) mg/dL Creatinine 0.70 (0.52-1.04) mg/dL Estimated GFR > 60 (>60) mL/min BUN/Creatinine Ratio 12.9 (6-22) Glucose 100 (70-100) mg/dL Calcium 8.8 (8.4-10.2) mg/dL Total Bilirubin 0.3 (0.2-1.3) mg/dL AST 28 (14-36) IU/L ALT 22 (<35) IU/L Alkaline Phosphatase 76 (38-126) U/L Total Protein 7.6 (6.3-8.2) g/dL Albumin 4.0 (3.5-5.0) g/dL Globulin 3.6 (1.7-4.1) g/dL Albumin/Globulin Ratio 1.1 (1.0-2.8) Lipase 62 (23-300) U/L HCG, Quant 4039.5 mIU/mL Blood Type O Positive MDM Narrative Medical decision making narrative: This is a 42-year-old female with vaginal bleeding and pelvic cramping with known was an HCG in the 100 range on 08/11/2022 and at that time no found on ultrasound. Patient would be approximately 8 weeks, she is with a prior twin and Sanchez she denies any other prior miscarriages. Patient had labs including CBC, Rh status, hCG level obtained and OB ultrasound to evaluate for possible ectopic. <Gracy Barakat DO - Last Filed: 09/05/22 03:30> Lab Data Labs: Lab Results 09/04/22 09/04/22 09/04/22 Range/Units 16:10 16:10 16:10 WBC 19.2 H (4.5-11.0) X10^3/uL RBC 4.44 (4.0-5.2) X10^6/uL Hgb 11.9 L (12.0-16.0) g/dL Hct 36.6 (36-46) % MCV 82.4 (80-100) fL MCH 26.7 (26-34) PG MCHC 32.4 (30-36) % RDW 16.5 H (11.6-14.8) % Plt Count 665 H (150-400) X10^3/uL Neut % (Auto) 67.6 (50-75) % Lymph % (Auto) 21.3 L (25-40) % [place] % (Auto) 8.3 (3-14) % Eos % (Auto) 2.1 (2-4) % Baso % (Auto) 0.7 (0-2) % Neut # (Auto) 13157 H (3816-3087) /uL Lymph # (Auto) 4100 (7448-2928) /uL [place] # (Auto) 1600 H (0-900) /uL Eos # (Auto) 400 (0-450) /uL Baso # (Auto) 100 (0-100) /uL Sodium 137 (137-145) mmol/L Potassium 3.8 (3.4-5.1) mmol/L Chloride 101 (98-107) mmol/L Carbon Dioxide 29 (22-32) mmol/L BUN 9 (7-17) mg/dL Creatinine 0.70 (0.52-1.04) mg/dL Estimated GFR > 60 (>60) mL/min BUN/Creatinine Ratio 12.9 (6-22) Glucose 100 (70-100) mg/dL Calcium 8.8 (8.4-10.2) mg/dL Total Bilirubin 0.3 (0.2-1.3) mg/dL AST 28 (14-36) IU/L ALT 22 (<35) IU/L Alkaline Phosphatase 76 (38-126) U/L Total Protein 7.6 (6.3-8.2) g/dL Albumin 4.0 (3.5-5.0) g/dL Globulin 3.6 (1.7-4.1) g/dL Albumin/Globulin Ratio 1.1 (1.0-2.8) Lipase 62 (23-300) U/L HCG, Quant 4039.5 mIU/mL Blood Type O Positive Imaging Data US - OB: Radiologist's Impression: PROCEDURE:? US OB <= 14 WEEKS FETUS ? INDICATIONS:? BLEEDING ? OUTSIDE/PRIOR DATING DATA:? Last menstrual period (LMP):? 07/13/2022.? LMP-based estimated date of delivery (AGATA):? 04/19/2023.? First dating scan (date and location):? 09/04/2022.? Estimated date of delivery (AGATA) from first dating scan:? 04/26/2023. ? TECHNIQUE:? Real-time scanning was performed of the fetus and maternal pelvic organs, with image documentation.? Endovaginal scanning was also performed to better visualize the fetus and maternal ovaries.? ? COMPARISON:? [facility], US OB <= 14 WEEKS FETUS, 08/11/2022, 18:54. ? FINDINGS:? ? Embryo:? Intrauterine is seen, with a pole measuring 7 mm, which corresponds to an estimated gestational age of 6 weeks 4 days. Heart rate:? No cardiac activity is seen, despite multiple attempts. ? Maternal organs:? The right ovary demonstrates multiple punctate echogenic foci.? The left ovary is unremarkable. ? ? IMPRESSION:? No cardiac activity is seen.? This is highly suspicious for spontaneous miscarriage in progress, given the history of bleeding. ? We strive to produce accurate, complete, and clear reports of imaging services. To assist us in improving patient care, this report was composed using standard report templates and voice recognition software. Therefore, it may contain abnormal punctuation, insertions and/or omissions. Occasional wrong-word or sound-alike substitutions may occur. Though we review the report and make efforts to correct it, we do recommend that the report be read carefully in proper context to recognize any text inaccuracies. ? ? ? Dictated by: Morales Lebron M.D. on 09/04/2022 at 17:19 MDM Narrative Medical decision making narrative: This is a 42-year-old female with vaginal bleeding and pelvic cramping with known was an HCG in the 100 range on 08/11/2022 and at that time no found on ultrasound. Patient would be approximately 8 weeks, she is with a prior twin and Sanchez she denies any other prior miscarriages. Patient had labs including CBC, Rh status, hCG level obtained and OB ultrasound to evaluate for possible ectopic. Dr. Barakat-patient signed out to me by Dr. Ha if seen evaluated patient myself. Ultrasound confirms no heartbeat probable miscarriage. Patient has an OBGYN who she has consulted with over the phone. sHe does not have heavy bleeding at this time it pain is minimal. Discharge Plan Departure Patient Disposition: Home Clinical Impression: Incomplete miscarriage Instructions: Miscarriage Activity Restrictions/Additional Instructions: *You have been diagnosed with miscarriage *What to do: It appears that UR miscarrying. Please monitor bleeding. He will also need close follow-up with OBGYN please call them 1st thing on Tuesday. *Continue to take medications as directed Tylenol or Motrin as needed for pain *Follow up with your primary care provider in 2-3 days or call [phone] Call Tuesday your OBGYN *Return to ER if you should have excessive vaginal bleeding more than 2 super pads in 1 hour increased pain dizziness lightheadedness passing out or any new, worsening or concerning symptoms Prescriptions: No Action hydroxychloroquine 200 mg tablet 200 mg PO DAILY fluoxetine 20 mg capsule 20 mg PO DAILY duloxetine 60 mg capsule,delayed release(DR/EC) 60 mg PO DAILY oxycodone-acetaminophen [Percocet] 5-325 mg tablet 1 tab PO Q6H PRN (Reason: pain) Qty: 20 0RF ondansetron 4 mg tablet,disintegrating 4 mg PO Q8H PRN (Reason: nausea and vomiting) Qty: 10 0RF ondansetron 4 mg tablet,disintegrating 4 mg PO Q8H PRN (Reason: nausea and vomiting) Qty: 10 0RF Referrals: Roverto Jarvis MD [Primary Care Provider] - Stand Alone Forms: Patient Portal/API
--- NOTE | 2022-09-04 16:43 | DI.US.S_ITS ---
PROCEDURE: US OB <= 14 WEEKS FETUS INDICATIONS: BLEEDING OUTSIDE/PRIOR DATING DATA: Last menstrual period (LMP): 07/13/2022. LMP-based estimated date of delivery (AGATA): 04/19/2023. First dating scan (date and location): 09/04/2022. Estimated date of delivery (AGAAT) from first dating scan: 04/26/2023. TECHNIQUE: Real-time scanning was performed of the fetus and maternal pelvic organs, with image documentation. Endovaginal scanning was also performed to better visualize the fetus and maternal ovaries. COMPARISON: [facility], OB <= 14 WEEKS FETUS, 08/11/2022, 18:54. FINDINGS: Embryo: Intrauterine is seen, with a pole measuring 7 mm, which corresponds to an estimated gestational age of 6 weeks 4 days. Heart rate: No cardiac activity is seen, despite multiple attempts. Maternal organs: The right ovary demonstrates multiple punctate echogenic foci. The left ovary is unremarkable. IMPRESSION: No cardiac activity is seen. This is highly suspicious for spontaneous miscarriage in progress, given the history of bleeding. We strive to produce accurate, complete, and clear reports of imaging services. To assist us in improving patient care, this report was composed using standard report templates and voice recognition software. Therefore, it may contain abnormal punctuation, insertions and/or omissions. Occasional wrong-word or sound-alike substitutions may occur. Though we review the report and make efforts to correct it, we do recommend that the report be read carefully in proper context to recognize any text inaccuracies. Dictated by: Morales Lebron M.D. on 09/04/2022 at 17:19 Approved by: Morales Lebron M.D. on 09/04/2022 at 17:21
[2022-09-04 17:04] LABS: Add Manual Diff / Slide Review NO; Basophils Absolute Auto 100 /uL (0-100); Basophils Percent Auto 0.7 % (0-2); Eosinophils Absolute Auto 400 /uL (0-450); Eosinophils Percent Auto 2.1 % (2-4); Hematocrit 36.6 % (36-46); Hemoglobin 11.9 g/dL (12.0-16.0); Lymphocytes Absolute Auto 4100 /uL (1100-4500); Lymphocytes Percent Auto 21.3 % (25-40); Mean Corpuscular HGB Conc 32.4 % (30-36); Mean Corpuscular Hemoglobin 26.7 PG (26-34); Mean Corpuscular Volume 82.4 fL (80-100); Monocytes Absolute Auto 1600 /uL (0-900); Monocytes Percent Auto 8.3 % (3-14); Neutrophils Absolute Auto 13000 /uL (1500-7000); Neutrophils Percent Auto 67.6 % (50-75); Platelet Count 665 X10^3/uL (150-400); Red Blood Cell Count 4.44 X10^6/uL (4.0-5.2); Red Cell Distribution Width 16.5 % (11.6-14.8); White Blood Cell Count 19.2 X10^3/uL (4.5-11.0)
[2022-09-04 17:10] LABS: Alanine Aminotransferase 22 IU/L (<35); Albumin Globulin Ratio 1.1 (1.0-2.8); Alkaline Phosphatase 76 U/L (38-126); Aspartate Aminotransferase 28 IU/L (14-36); BUN Creatinine Ratio 12.9 (6-22); Bilirubin Total 0.3 mg/dL (0.2-1.3); Blood Urea Nitrogen 9 mg/dL (7-17); Calcium 8.8 mg/dL (8.4-10.2); Carbon Dioxide 29 mmol/L (22-32); Chloride 101 mmol/L (98-107); Estimated Glomerular Filt Rate > 60 mL/min (>60); Globulin 3.6 g/dL (1.7-4.1); Glucose 100 mg/dL (70-100); HEMOLYSIS < 15 (0-50); Lipase 62 U/L (23-300); Potassium 3.8 mmol/L (3.4-5.1); Sodium 137 mmol/L (137-145); Total Protein 7.6 g/dL (6.3-8.2)
[2022-09-04 17:27] LABS: HCG Quantitative /Beta subunit 4039.5 mIU/mL
== END 2022-09-04 19:10 | disposition home or self-care (01) ==
PROVIDERS: Emergency Medicine; Emergency Provider Emergency Medicine; PCP Family Medicine Sports Medicine
DX: O03.4 Incomplete spontaneous abortion without complication (principal); R10.2 Pelvic and perineal pain
CPT/HCPCS: 76801; 76817; 80053; 83690; 84702; 85025; 86900; 86901; 99281; 99284